=== PATIENT | female | born 1945 | race Caucasian/White ===

== ENCOUNTER 2016-11-27 11:23 | Day surgery (SDC) | payer MEDICARE, OTHER ==
--- NOTE | ~2016-11-27 | EGD ---
EGD REPORT [facility] [address] [place] [address] NAME: MANJEET CORONEL : [birth year] STATUS : REG [facility]#: [id number] AGE: 71 ADM/REG DATE : 11/27/16 MR#: [id number] REPORT SERV DATE: 11/27/16 DICTATED BY: REBEKA BRIONES DATE: 11/27/16 REPORT STATUS : Draft TRANSCRIBED BY: [facility] DATE: 11/27/16 Endoscopy Center Patient Name: Manjeet Coronel Date of : 1945 Attending MD: REBEKA BRIONES MD Procedure Date No Time: 11/27/2016 Procedure: Colonoscopy Indications: High risk colon cancer surveillance: Personal history of colonic polyps Referring MD: Dian Trivedi Medicines: Monitored Anesthesia Care Complications: No immediate complications. Procedure: Pre-Anesthesia Assessment: - ASA Grade Assessment: II - A patient with mild systemic disease. After I obtained informed consent, the scope was passed under direct vision. Throughout the procedure, the patient's blood pressure, pulse, and oxygen saturations were monitored continuously. The PCF [id number] was introduced through the anus and advanced to the terminal ileum, with identification of the appendiceal orifice and IC valve. The colonoscopy was performed without difficulty. The patient tolerated the procedure well. The quality of the bowel preparation was fair. Findings: The digital rectal exam was normal. Pertinent negatives include no palpable rectal lesions. The terminal ileum appeared normal. Multiple diverticula were found in the sigmoid colon. Hemorrhoids were found during retroflexion and were small. A sessile polyp was found in the ascending colon. The polyp was 3 mm in size. The polyp was removed with a cold biopsy forceps. Resection and retrieval were complete. A sessile polyp was found in the descending colon. The polyp was 11 mm in size. The polyp was removed with a cold snare. Resection and retrieval were complete. A pedunculated polyp was found in the sigmoid colon. The polyp was 8 mm in size. The polyp was removed with a hot snare. Resection and retrieval were complete. A sessile polyp was found in the sigmoid colon. The polyp was 6 mm in size. The polyp was removed with a cold snare. Resection was complete, but the polyp tissue was not retrieved. Impression: - The examined portion of the ileum was normal. EGD REPORT [address] [place]. [address] NAME: MANJEET CORONEL : [birth year] STATUS : REG [facility] PAT#: [id number] AGE: 71 ADM/REG DATE : 11/27/16 MR#: [id number] REPORT SERV DATE: 11/27/16 DICTATED BY: REBEKA BRIONES DATE: 11/27/16 REPORT STATUS : Draft TRANSCRIBED BY: [facility] DATE: 11/27/16 - Diverticulosis in the sigmoid colon. - Hemorrhoids. - One 3 mm polyp in the ascending colon. Resected and retrieved. - One 11 mm polyp in the descending colon. Resected and retrieved. - One 8 mm polyp in the sigmoid colon. Resected and retrieved. - One 6 mm polyp in the sigmoid colon. Complete resection. Polyp tissue not retrieved. Recommendation: - Patient has a contact number available for emergencies. The signs and symptoms of potential delayed complications were discussed with the patient. Return to normal activities tomorrow. Written discharge instructions were provided to the patient. - Regular diet. - Continue present medications. - Repeat colonoscopy in 3 years for surveillance. - Return to GI clinic PRN. Procedure Code(s): --- Professional --- 02194, Colonoscopy, flexible, proximal to splenic flexure; with removal of tumor(s), polyp(s), or other lesion(s) by snare technique 22037, 59, Colonoscopy, flexible, proximal to splenic flexure; with biopsy, single or multiple Diagnosis Code(s): --- Professional --- K64.9, Unspecified hemorrhoids K57.30, Diverticulosis of large intestine without perforation or abscess without bleeding D12.5, Benign neoplasm of sigmoid colon D12.4, Benign neoplasm of descending colon D12.2, Benign neoplasm of ascending colon Z86.010, Personal history of colonic polyps CPT copyright 2013 [employer]. All rights reserved. The codes documented in this report are preliminary and upon gang drill press operator review may be revised to meet current compliance requirements. REBEKA BRIONES MD 11/27/2016 3:08 PM This report has been signed electronically. EGD REPORT [facility] [address] [place] [id number] NAME: MANJEET CORONEL : [birth year] STATUS : REG [facility] PAT#: [id number] AGE: 71 ADM/REG DATE : 11/27/16 MR#: [id number] REPORT SERV DATE: 11/27/16 DICTATED BY: REBEKA BRIONES DATE: 11/27/16 REPORT STATUS : Draft TRANSCRIBED BY: [employer] DATE: 11/27/16 Number of Addenda: 0 Note Initiated On: 11/27/2016 2:29 PM Scope Withdrawal Time 0 hours 11 minutes 2 seconds [address] [id number]
[~2016-11-27 11:23] MED LIST: ASAB PO; CO Q-10100 MG PO; FIBER PILL PO; FIBERCON PO; FISH-EPA1000 MG PO; GLUCOSAMINEPO; HARD NAILS OR; LEVOTHYROXIN125 MCG PO; LYRICA; LYRICA100 MG PO; LYRICA75 PO; MICROZIDE PO; MILK THISTLE; MINIVELLE; MINIVELLE1 EAC3 TOP; NORV10 PO; PHENTERMINE37.5 MG OR; PRILO PO; PRISTIQ50 MG PO; PROAIR HFA INH; PROGESTERONE; PROMETRIUM200 MG PO; SIMCOR1 TAB PO; SIMVASTATIN; TEG100B PO; TEG200 PO; VITAMIN B; VITAMIN D1000 UNI1 PO; VITC500 PO; VITE PO; [UNRECOGNIZED DRUG - OTHER]
== END 2016-11-27 23:59 | disposition home or self-care (01) ==
LOC: DMU 11:23
PROVIDERS: Internal Medicine Gastroenterology
PROC: 0DBN8ZZ Excision of Sigmoid Colon, Via Natural or Artificial Opening Endoscopic (ICD-10-PCS; 2016-11-27)
PROC: 0DBK8ZZ Excision of Ascending Colon, Via Natural or Artificial Opening Endoscopic (ICD-10-PCS; principal; 2016-11-27 13:30)
PROC: 0DBM8ZZ Excision of Descending Colon, Via Natural or Artificial Opening Endoscopic (ICD-10-PCS; 2016-11-27 13:30)
DX: Z12.11 Encounter for screening for malignant neoplasm of colon (principal); D12.4 Benign neoplasm of descending colon; D12.5 Benign neoplasm of sigmoid colon; K57.30 Diverticulosis of large intestine without perforation or abscess without bleeding; K64.9 Unspecified hemorrhoids; K21.9 Gastro-esophageal reflux disease without esophagitis; K58.9 Irritable bowel syndrome, unspecified; K76.0 Fatty (change of) liver, not elsewhere classified; I10 Essential (primary) hypertension; E03.9 Hypothyroidism, unspecified; F32.9 Major depressive disorder, single episode, unspecified; J44.9 Chronic obstructive pulmonary disease, unspecified; G62.9 Polyneuropathy, unspecified; Z86.010 Personal history of colon polyps; Z86.69 Personal history of other diseases of the nervous system and sense organs; Z87.891 Personal history of nicotine dependence; Z96.1 Presence of intraocular lens; Z98.41 Cataract extraction status, right eye; Z98.42 Cataract extraction status, left eye; Z90.49 Acquired absence of other specified parts of digestive tract; Z79.899 Other long term (current) drug therapy; Z98.890 Other specified postprocedural states
CPT/HCPCS: 88305